=== PATIENT | male | born 1965 | race Hispanic/Latino ===

== ENCOUNTER → 2016-12-09 | Outpatient (CLI) | payer OTHER ==
--- NOTE | 2016-12-09 11:09 | REP ---
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 Fibro atelectatic changes are seen in the lung bases bilaterally. The heart is mildly enlarged in its visualized portion. Are, spleen, pancreas, gallbladder are normal. Adrenal glands kidneys within normal limits. There is no hydronephrosis or obstructing ureteral calculi bilaterally. There are no visualized intrarenal masses or cysts. Stomach and small bowel are within normal limits. Abdominal aorta is ectatic, measuring 2.5 cm AP by 2.7 cm transverse dimension proximally, with distal tapering. There are no pathologically enlarged retroperitoneal nodes. Bladder is normal. There is mild prostatic enlargement with minimal impression on the posterior inferior bladder. There are scattered colonic diverticula and moderate generalized retained colonic stool. There has been a prior appendectomy . There is no free air or ascites. Impression 1. Unremarkable kidneys without hydronephrosis intrarenal masses or cysts. 2. Mildly enlarged prostate with minimal impression upon the posterior inferior bladder 3. Abdominal aorta is ectatic, measuring 2.5 cm AP by 2.7 cm transverse dimension proximally, with distal tapering. 3. Calcified bibasilar pleural plaques consistent with asbestos related disease. Signed by Rebecca Esquivel MD 12/09/2016 11:01 A
== END ==
LOC: M RAD 10:22
PROVIDERS: ATTEND Surgery
DX: R31.21 Asymptomatic microscopic hematuria (principal)